=== PATIENT | female | born 1985 | race African-American/Black ===

== ENCOUNTER 2025-04-17 09:56 | Emergency (ER) | payer MEDICAID ==
[~2025-04-17] VITALS: Ht 162.6 cm; Wt 61.0 kg
[2025-04-17 11:00] VITALS: TEMP 98.1
[2025-04-17] MEDS: CefTRIAXone SODIUM 1 GM/VIAL IM ONE (11:14)
[2025-04-17] MEDS: LIDOCAINE/PF 1% 2 ML VIAL IM ONE (11:15)
[2025-04-17] MEDS: OxyCODONE HCL/ACETAMINOPHEN 5-325 MG TABLET PO ONE (11:15)
[2025-04-17] MEDS ORDERED: PENI500T2 PO (11:44)
[2025-04-17] MEDS ORDERED: IBUP-1492 PO (11:45)
[2025-04-17] MEDS ORDERED: OXYC-38 PO (11:48)
[2025-04-17 11:57] VITALS: BP 143/88; PULSE 75; RESP 19; O2SAT 99
== END 2025-04-17 12:33 | disposition home or self-care (01) ==
LOC: EMS 09:56
DX: K04.7 Periapical abscess without sinus (principal); F17.210 Nicotine dependence, cigarettes, uncomplicated
CPT/HCPCS: 99283; 96372; J0696; J3490